=== PATIENT | female | born 1955 | race Two or more races ===

== ENCOUNTER 2022-05-04 06:17 | Day surgery (SDC) | payer OTHER ==
[~2022-05-04] VITALS: Ht 160 cm; Wt 59.4 kg
[~2022-05-04 06:17] MED LIST: CLONAZEPAM2 M1 PO; COZAAR50 MG PO; INVOKANA300 MG PO; LANTUS SOL100 UNIT/1; NORVASC10 MG PO
== END 2022-05-04 14:10 | disposition home or self-care (01) ==
LOC: CIR.AMB 06:17
PROVIDERS: ATTEND Orthopaedic Surgery Hand Surgery
DX: D18.09 Hemangioma of other sites (principal); M25.821 Other specified joint disorders, right elbow; E11.9 Type 2 diabetes mellitus without complications; I10 Essential (primary) hypertension; F41.9 Anxiety disorder, unspecified